=== PATIENT | female | born 1995 | race Caucasian/White ===

== ENCOUNTER 2025-04-24 09:54 | Inpatient (IN) | payer MEDICAID ==
[~2025-04-24] VITALS: Ht 165.1 cm; Wt 80.7 kg
[2025-04-24 09:56] VITALS: O2SAT 99
[2025-04-24 10:25] LABS: BASOPHILS % 0.8 % (0.0-2.0); EOSINOPHILS % 2.4 % (0.0-5.0); HEMATOCRIT. 36.6 % (36.0-48.0); HEMOGLOBIN. 12.4 g/dL (12.0-16.0); LYMPHOCYTES % 28.1 % (20.0-50.0); MEAN PLATELET VOLUME 8.2 fl (7.4-10.4); MONOCYTES % 5.3 % (2.0-8.0); NEUTROPHILS % 63.4 % (40.0-76.0); PLATELET 263 x1000/uL (130-400); RED BLOOD CELL COUNT 4.22 mill/uL (4.2-5.4); RED CELL DISTRIBUTION WIDTH 13.6 % (11.6-14.6)
[2025-04-24] MEDS: ACETAMINOPHEN 1000MG/100ML 100 ML IV ONE (10:34)
[2025-04-24 10:43] LABS: CREATININE 0.7 mg/dL (0.6-1.0); UREA NITROGEN BLOOD 8 mg/dL (9-23)
[2025-04-24 10:45] LABS: TROPONIN I HIGH SENSITIVITY < 4 ng/L (3.0-34)
[2025-04-24] MEDS ORDERED: GUAIFENESIN 200MG/10ML SUGAR FREE UDC PO PRN (13:15)
[2025-04-24] MEDS ORDERED: NA PHOS,M-B/NA PHOS,DI-BA ENEMA 118ML PR PRN (13:15)
[2025-04-24] MEDS ORDERED: ACETAMINOPHEN 325MG TABLET PO PRN (13:15)
[2025-04-24] MEDS ORDERED: MAGNESIUM/ALUMINUM HYDROXIDE/SIMETHICONE 30ML UDC PO PRN (13:15)
[2025-04-24] MEDS ORDERED: CLONIDINE 0.1MG TABLET PO PRN (13:15)
[2025-04-24] MEDS ORDERED: ONDANSETRON HCL 4MG/2ML INJ IV PRN (13:15)
[2025-04-24] MEDS ORDERED: DEXTROSE 50% WATER 50ML SYRINGE IV PRN (13:15)
[2025-04-24] MEDS ORDERED: HYDROCODONE/ACETAMINOPHEN 5/325MG TABLET PO PRN (13:15)
[2025-04-24] MEDS ORDERED: IPRATROPIUM/ALBUTEROL 0.5-3(2.5)MG/3ML NEB HHN PRN (13:15)
[2025-04-24] MEDS: INSULIN LISPRO 100 UNITS/ML SUBCUT SCH (13:20)
[2025-04-24] MEDS ORDERED: NALOXONE HCL 0.4MG/ML VIAL IV PRN (13:30)
[2025-04-24] MEDS: BLOOD SUGAR DIAGNOSTIC STRIP TEST SCH (13:50)
[2025-04-24] MEDS: MVI, ADULT NO.1 10 ML, FOLIC ACID 1 MG, THIAMINE HCL 100 MG in SODIUM CHLORIDE 0.9% 1,0... IV ONE (14:12)
[2025-04-24 14:22] LABS: CLARITY URINE CLEAR (CLEAR); COLOR URINE YELLOW (YELLOW); GLUCOSE URINE NEGATIVE (NEGATIVE); KETONES URINE NEGATIVE (NEGATIVE); LEUKOCYTE ESTERASE URINE NEGATIVE (NEGATIVE); NITRITE URINE NEGATIVE (NEGATIVE); OCCULT BLOOD URINE NEGATIVE (NEGATIVE); PH URINE 6.5 (4.5-8.0); PROTEIN URINE NEGATIVE (NEGATIVE); SPECIFIC GRAVITY URINE 1.008 (1.005-1.030); UROBILINOGEN URINE 0.2 E.U./dL (0.2-1.0)
[2025-04-24 14:31] LABS: *AMPHETAMINES SCREEN URINE NEGATIVE (NEGATIVE); *BARBITURATES SCREEN URINE NEGATIVE (NEGATIVE); *BENZODIAZEPINES SCREEN URINE NEGATIVE (NEGATIVE)
[2025-04-24 14:32] LABS: *COCAINE SCREEN URINE NEGATIVE (NEGATIVE); CANNABINOID URINE SCREEN NEGATIVE (NEGATIVE); ECSTASY MDMA SCREEN URINE NEGATIVE (NEGATIVE); METHADONE URINE SCREEN NEGATIVE (NEGATIVE); OPIATES URINE SCREEN NEGATIVE (NEGATIVE); PHENCYCLIDINE URINE SCREEN NEGATIVE (NEGATIVE)
[2025-04-24 15:24] LABS: ASPARTATE AMINOTRANSFERASE 27 IU/L (<34); BILIRUBIN DIRECT < 0.1 mg/dL (<=3.0); BILIRUBIN TOTAL 0.4 mg/dL (0.1-1.0); PHOSPHORUS 2.2 mg/dL (2.5-4.9); PROTEIN TOTAL 6.7 g/dL (6.0-8.3)
[2025-04-24 15:25] LABS: T4 FREE 0.93 ng/dL (0.89-1.76)
[2025-04-24 15:27] LABS: FOLIC ACID (FOLATE) SERUM 7.04 ng/mL (>5.38)
[2025-04-24] MEDS ORDERED: NITROGLYCERIN 0.4MG TABLET SL SL PRN (15:30)
[2025-04-24] MEDS ORDERED: SODIUM CHLORIDE 0.9% 1,000 ML IV SCH (15:30)
[2025-04-24 15:41] LABS: VITAMIN B12 SERUM > 2000 pg/mL (211-911)
[2025-04-24] MEDS: ENOXAPARIN 40MG/0.4ML SYR SUBCUT SCH (17:30)
[2025-04-24] MEDS: ASPIRIN 81MG TABLET PO SCH (17:31)
[2025-04-24 17:44] LABS: TROPONIN I HIGH SENSITIVITY < 4 ng/L (3.0-34)
[2025-04-24 20:00] VITALS: BP 100/60; PULSE 77; RESP 18; TEMP 36.7; O2SAT 100
[2025-04-24] MEDS: PANTOPRAZOLE SODIUM 40 MG/VIAL IV SCH (20:35)
[2025-04-24] MEDS: ATORVASTATIN CALCIUM 40MG TABLET PO SCH (21:24)
[2025-04-24 21:36] VITALS: BP 100/60; PULSE 77; RESP 18; TEMP 36.7516
[2025-04-25] VITALS (7 sets, daily range): BP systolic 93–124; BP diastolic 42–67; PULSE 8–84; RESP 17–20; TEMP 36.6–36.9; O2SAT 96–100
[2025-04-25] MEDS: DEXT 5%/0.9% NACL 1,000 ML IV SCH (01:31)
[2025-04-25 01:38] LABS: TRIGLYCERIDE 121.0 mg/dL (0-150)
[2025-04-25 01:39] LABS: LDL CHOLESTEROL 125.0 mg/dL (5-100); TROPONIN I HIGH SENSITIVITY < 4 ng/L (3.0-34)
[2025-04-25] MEDS: LIDOCAINE HCL 4% CREAM 76GM TUBE TP SCH (01:43)
[2025-04-25] MEDS: DICLOFENAC SODIUM 1% GEL 50GM TOP SCH (01:43)
[2025-04-25] MEDS: ACETAMINOPHEN 325MG TABLET PO PRN (01:47)
[2025-04-25 02:16] LABS: HEPATITIS A AB IGM NEGATIVE (Negative)
[2025-04-25 02:17] LABS: HEPATITIS B CORE AB IGM NEGATIVE (Negative); HEPATITIS C AB NON REACTIVE (Neg) (Negative)
[2025-04-25 05:17] LABS: HCG SCREEN NEGATIVE
[2025-04-25 13:14] LABS: BASOPHILS % 1.0 % (0.0-2.0); EOSINOPHILS % 3.9 % (0.0-5.0); HEMATOCRIT. 34.8 % (36.0-48.0); HEMOGLOBIN. 11.9 g/dL (12.0-16.0); LYMPHOCYTES % 35.8 % (20.0-50.0); MEAN PLATELET VOLUME 8.6 fl (7.4-10.4); MONOCYTES % 6.1 % (2.0-8.0); NEUTROPHILS % 53.2 % (40.0-76.0); PLATELET 259 x1000/uL (130-400); RED BLOOD CELL COUNT 4.03 mill/uL (4.2-5.4); RED CELL DISTRIBUTION WIDTH 13.7 % (11.6-14.6)
[2025-04-25 13:31] LABS: CREATININE 0.7 mg/dL (0.6-1.0); TRIGLYCERIDE 105 mg/dL (0-150); UREA NITROGEN BLOOD 8 mg/dL (9-23)
[2025-04-25 13:32] LABS: LDL CHOLESTEROL 117 mg/dL (5-100)
[2025-04-25] MEDS ORDERED: ASPI-1160 PO (15:39)
[2025-04-25] MEDS ORDERED: ATOR10TA PO (15:39)
[2025-04-25] MEDS: ATORVASTATIN CALCIUM 10MG TABLET PO SCH (20:32)
[2025-04-26] VITALS: BP 110/58; PULSE 82; RESP 20; TEMP 36.4; O2SAT 99
[2025-04-26 04:00] VITALS: BP_SYST 105; BP_SYST 111; BP_SYST 98; BP_DIAS 55; BP_DIAS 60; BP_DIAS 64; PULSE 81; RESP 19; TEMP 36.7; O2SAT 100
[2025-04-26 08:00] VITALS: BP 103/58; PULSE 74; RESP 18; TEMP 36.6; O2SAT 100
[2025-04-26 08:10] LABS: TROPONIN I HIGH SENSITIVITY < 4 ng/L (3.0-34)
[2025-04-26 08:11] LABS: BASOPHILS % 0.8 % (0.0-2.0); CREATININE 0.7 mg/dL (0.6-1.0); EOSINOPHILS % 3.9 % (0.0-5.0); HEMATOCRIT. 35.6 % (36.0-48.0); HEMOGLOBIN. 12.2 g/dL (12.0-16.0); LYMPHOCYTES % 26.2 % (20.0-50.0); MEAN PLATELET VOLUME 8.6 fl (7.4-10.4); MONOCYTES % 5.5 % (2.0-8.0); NEUTROPHILS % 63.6 % (40.0-76.0); PLATELET 250 x1000/uL (130-400); RED BLOOD CELL COUNT 4.12 mill/uL (4.2-5.4); RED CELL DISTRIBUTION WIDTH 13.3 % (11.6-14.6); UREA NITROGEN BLOOD 10 mg/dL (9-23)
[2025-04-26 11:42] VITALS: BP 112/68; PULSE 85; RESP 16; TEMP 98
[2025-04-26 12:00] VITALS: BP 105/60; PULSE 71; RESP 20; TEMP 36.7; O2SAT 100
[2025-04-28 17:07] LABS: MITOCHONDRIAL M2 AB <20.0 Units (0.0-20.0)
== END 2025-04-26 14:10 | disposition home or self-care (01) | DRG 48 ==
LOC: ER 09:54 → EDBEDREQ 12:03 → EDBEDREQTM 12:03 → ENRESERV 17:25 → 7WST 19:41
PROVIDERS: ADMIT Hospitalist; ATTEND Hospitalist
DX: G90.9 Disorder of the autonomic nervous system, unspecified (principal); S09.90XA Unspecified injury of head, initial encounter; K52.9 Noninfective gastroenteritis and colitis, unspecified; I95.1 Orthostatic hypotension; E78.00 Pure hypercholesterolemia, unspecified; M54.2 Cervicalgia; Z79.82 Long term (current) use of aspirin; Z87.11 Personal history of peptic ulcer disease; Z82.49 Family history of ischemic heart disease and other diseases of the circulatory system; X58.XXXA Exposure to other specified factors, initial encounter; Y93.89 Activity, other specified; Y92.89 Other specified places as the place of occurrence of the external cause; Y99.8 Other external cause status
CPT/HCPCS: 36415; 71045; 73060; 73090; 74176; 76700; 80048; 80061; 80076; 80305; 81003; 82550; 82607; 82746; 82784; 82962; 83036; 83516; 83605; 83695; 83735; 83880; 84100; 84439; 84443; 84484; 84703; 85025; 85651; 86038; 86141; 86705; 86709; 87340; 93005; 93306; 94640; 96365; 96367; 96372; 99285; J1650; J2470; J3411; J3490; J7030; J0131